=== PATIENT | male | born 1955 | race Caucasian/White ===

== ENCOUNTER 2017-09-24 19:01 | Emergency (ER) | payer SELFPAY ==
--- NOTE | 2017-09-24 19:20 | ER Document Report ---
ED General - General Stated Complaint: UNRESPONSIVE Time Seen by Provider: 09/24/17 19:12 Mode of Arrival: Medic Information source: Emergency Med Personnel Cannot obtain history due to: Altered mental status Notes: This is a 62-year-old man with no known medical history brought into the emergency room by EMS unresponsive. The patient was reportedly brought driving into the [employer] when he pulled to the side of the road. When bystanders went to go check on the patient, he was unresponsive and EMS was called. EMS found the patient unresponsive with a blood pressure of 186/100, Accu-Chek was 78. Patient is unresponsive to voice in the emergency room. He does withdraw to pain. He does intermittently blink his eyes. His oxygen saturation is 99% on 2 L and is maintaining his airway at this time. Twelve-lead EKG by EMS shows normal sinus rhythm with no acute ST-T wave changes - HPI Onset: Just prior to arrival Onset/Duration: Sudden Quality of pain: No pain Severity: None Pain Level: Denies - Related Data Allergies/Adverse Reactions: Unable to Assess Allergy (Unverified 09/25/17 10:43) Past Medical History - General Information source: Emergency Med Personnel Cannot obtain history due to: Altered mental status - Social History Smoking Status: Never Smoker Cigarette use (# per day): No Chew tobacco use (# tins/day): No Frequency of alcohol use: None Drug Abuse: None Lives with: Alone Family History: None Patient has suicidal ideation: No Patient has homicidal ideation: No - Medical History Medical History: Negative Review of Systems - Review of Systems -: Yes ROS unobtainable due to patient's medical condition Physical Exam - Vital signs Vitals: Temp Resp Pulse Ox 99.7 F 19 98 09/24/17 19:04 09/24/17 19:04 09/24/17 19:04 Notes: Physical exam: GENERAL: 62-year-old man, unresponsive to verbal command, does localize to pain , his eyes are closed. Currently his oxygen saturation is 99% on 2 L and is maintaining his airway. Rectal temperature is 99.7. HEAD: Atraumatic, normocephalic. EYES: Pupils equal round and reactive to light, extraocular movements intact, sclera anicteric, conjunctiva are normal. ENT: TMs normal, nares patent, oropharynx clear without exudates. Moist mucous membranes. NECK: Normal range of motion, supple without obvious mass or JVD. LUNGS: Breath sounds clear to auscultation bilaterally and equal. No wheezes rales or rhonchi. HEART: Regular rate and rhythm without murmurs, rubs or gallops. ABDOMEN: Soft, normoactive bowel sounds. No tenderness to palpation. No guarding, no rebound. No masses appreciated. Stool: Brown, sent for study, no masses EXTREMITIES: Normal range of motion, no pitting or edema. No clubbing or cyanosis. NEUROLOGICAL: As noted above, significant alteration in mental status. PSYCH: Unresponsive SKIN: Warm, Dry, normal turgor, no rashes or lesions noted. Course - Re-evaluation Re-evalutation: 09/24/17 23:28 Note: We have no records of this patient. 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 He was in the location of the [facility] when he was driving before this event today happened. I did call the [facility] to see if they had any records of the patient and they did not. The patient has remained nonverbal. For the first several hours, he remained minimally responsive but maintained stable vital signs and a stable airway. He did become agitated with further blood testing and it ripped out his IV at one time requiring restraints. However, he is never returned to a clear sensorium. I did discuss the case with the hospitalist at this hospital who is now willing to accept the patient because of the lack of neurology consultation/EEG. While the patient's symptoms may very well be behavioral in origin, it is very difficult to know for sure at this time. He has not manifested any toxidrome and his tox screen is been negative thus far. I did speak to Dr. Mathis at [facility] who is willing to accept the patient. 09/24/17 23:50 Note: Patient has since started speaking and does admit that he has PTSD and has been on Abilify in the past. He denies any seizure activity. He is quite agitated and states he "had a cardiac arrest". When I have explained to him that he never had a cardiac arrest today, he has become belligerent. In any event, his symptoms at this point tend to be more behavioral than primary neurologic and I will continue to observe him in the emergency room for psych evaluation in the morning. The transfer to [facility] has been canceled in light of the recent events. 09/25/17 02:53 Note: Patient is now resting comfortably with stable vital signs. He was quite agitated as mentioned above and required IV Haldol, IV Ativan for sedation. The patient's spinal tap showed no evidence of infection. CTA of the head and neck showed no evidence of bleed or aneurysm. The plan is to continue to watch the patient until the morning to reassess mental status and to have psychiatry evaluate. 09/25/17 02:55 09/27/17 00:24 Confirmation of psychiatric history from the police department in [place] was obtained. Patient has been ambulating around the emergency room with various complaints at various times. He is refusing his Abilify. The plan is waiting for psychiatric disposition. - Vital Signs Vital signs: Temp Pulse Resp BP Pulse Ox 97.2 F 84 16 144/88 H 100 09/26/17 22:26 09/26/17 22:26 09/26/17 22:26 09/26/17 22:26 09/26/17 22:26 - Laboratory Result Diagrams: 09/24/17 19:00 09/25/17 09:50 Laboratory results interpreted by me: 09/24/17 09/24/17 09/24/17 19:00 19:37 23:10 Sodium Potassium Total Bilirubin 2.0 H Direct Bilirubin 0.5 H AST 207 H ALT 81 H Creatine Kinase 2335 H CK-MB (CK-2) Total Protein Urine Protein 30 H Urine Ketones 80 H Urine Urobilinogen 4.0 H Salicylates < 1.0 L Acetaminophen < 10 L Phenytoin < 3.0 L Carbamazepine < 2.1 L [place] 09/24/17 09/24/17 09/25/17 23:10 23:10 09:50 Sodium 145.5 H Potassium 5.4 H D Total Bilirubin 2.0 H Direct Bilirubin AST 153 H ALT Creatine Kinase 2164 H 1585 H CK-MB (CK-2) Total Protein 6.1 L Urine Protein Urine Ketones Urine Urobilinogen Salicylates Acetaminophen Phenytoin Carbamazepine [place] < 0.2 L 09/25/17 09:50 Sodium Potassium Total Bilirubin Direct Bilirubin AST ALT Creatine Kinase CK-MB (CK-2) 5.11 H Total Protein Urine Protein Urine Ketones Urine Urobilinogen Salicylates Acetaminophen Phenytoin Carbamazepine [place] - Diagnostic Test Radiology reviewed: Image reviewed, Reports reviewed - CT of the head shows no bleed. CTA of the head and neck shows no aneurysm or bleed. - EKG Interpretation by Me Rate: Normal Rhythm: NSR - EKG shows normal sinus rhythm with a ventricular rate of 98, no acute ST-T wave changes Procedures - Lumbar Puncture Lumbar puncture Time completed: 21:00 Consent obtained: No - Patient his altered. No contact numbers. Lumbar puncture pre-procedure: Betadine prep applied, Chloraprep applied, Sterile drapes applied Patient position: Lying Needle size: 20 Lumbar puncture location: Lumbar lower Anesthetic type: 1% Lidocaine mL's of anesthetic: 4 Amount/type of drainage: Mild traumatic at first, cleared nicely Number of attempts: 2 Complications: No Notes: 09/24/17 21:01 No xanthochromia. Opening pressure 15 Critical Care Note - Critical Care Note Total time excluding time spent on procedures (mins): 110 Discharge - Discharge Clinical Impression: Altered mental status, PTSD Condition: Stable
[2017-09-24 19:31] LABS: ABSOLUTE LYMPHOCYTES (AUTO) 1.9 10^3/uL (0.5-4.7); ABSOLUTE MONOCYTES (AUTO) 0.8 10^3/uL (0.1-1.4); ABSOLUTE NEUT (AUTO) 5.2 10^3/uL (1.7-8.2); BASOPHILS % (AUTO) 0.1 % (0-2); HEMATOCRIT 44.7 % (37.9-51.0); HEMOGLOBIN 15.7 g/dL (13.5-17.0); LYMPHOCYTES % (AUTO) 24.4 % (13-45); MEAN CORPUSCULAR HEMOGLOBIN 29.5 pg (27.0-33.4); MEAN CORPUSCULAR HGB CONC 35.1 g/dL (32.0-36.0); MEAN CORPUSCULAR VOLUME 84 fl (80-97); PLATELET COUNT 295 10^3/uL (150-450); RED BLOOD COUNT 5.33 10^6/uL (4.35-5.55); RED CELL DISTRIBUTION WIDTH 13.3 % (11.5-14.0); SEGMENTED NEUTROPHILS % (AUTO) 65.5 % (42-78); TOTAL CELLS COUNTED % (AUTO) 100 %; WHITE BLOOD COUNT 7.9 10^3/uL (4.0-10.5)
[2017-09-24 19:36] LABS: VENOUS BLOOD BASE EXCESS 3.2 mmol/L; VENOUS BLOOD HCO3 29.1 mmol/L (20-32); VENOUS BLOOD PCO2 48.2 mmHg (35-63); VENOUS BLOOD PH 7.4 (7.30-7.42)
--- NOTE | 2017-09-24 19:38 | RADIOLOGY REPORT (SQ) ---
EXAM DESCRIPTION: CT HEAD WITHOUT COMPLETED DATE/TIME: 09/24/2017 7:23 pm REASON FOR STUDY: altered ms COMPARISON: None. TECHNIQUE: Axial images acquired through the brain without intravenous contrast. Images reviewed wi th bone, brain and subdural windows. Images stored on PACS. All CT scanners at this facility use dose modulation, iterative reconstruction, and/or weight based d osing when appropriate to reduce radiation dose to as low as reasonably achievable (ALARA). [facility]: Dose Right [facility]: CareDose [facility]: Dose Right [facility]: Teradose 4D [facility]: G-Snap! RADIATION DOSE: CT Rad equipment meets quality standard of care and radiation dose reduction techniq ues were employed. CTDIvol: 53.2 mGy. DLP: 1017 mGy-cm. mGy. LIMITATIONS: None. FINDINGS: VENTRICLES: Normal size and contour. CEREBRUM: No masses. No hemorrhage. No midline shift. No evidence for acute infarction. Normal gra y/white matter differentiation. No areas of low density in the white matter. CEREBELLUM: No masses. No hemorrhage. No alteration of density. No evidence for acute infarction. EXTRAAXIAL SPACES: No fluid collections. No masses. ORBITS AND GLOBE: No intra- or extraconal masses. Normal contour of globe without masses. CALVARIUM: No fracture. PARANASAL SINUSES: No fluid or mucosal thickening. SOFT TISSUES: No mass or hematoma. OTHER: No other significant finding. IMPRESSION: NORMAL BRAIN CT WITHOUT CONTRAST. EVIDENCE OF ACUTE STROKE: NO. COMMENT: Findings were discussed with Dr. Blackwood at 1932 hours on this date. Quality ID # 436: Final reports with documentation of one or more dose reduction techniques (e.g., Au tomated exposure control, adjustment of the mA and/or kV according to patient size, use of iterative reconstruction technique) TECHNICAL DOCUMENTATION: JOB ID: [id number] [employer]- All Rights Reserved Reading location - IP/workstation name: [email or web address]
--- NOTE | 2017-09-24 19:38 | RADIOLOGY REPORT (SQ) ---
EXAM DESCRIPTION: CHEST SINGLE VIEW COMPLETED DATE/TIME: 09/24/2017 7:26 pm REASON FOR STUDY: altered COMPARISON: None. EXAM PARAMETERS: NUMBER OF VIEWS: One view. TECHNIQUE: Single frontal radiographic view of the chest acquired. RADIATION DOSE: NA LIMITATIONS: None. FINDINGS: LUNGS AND PLEURA: No opacities, masses or pneumothorax. No pleural effusion. MEDIASTINUM AND HILAR STRUCTURES: No masses. Contour normal. HEART AND VASCULAR STRUCTURES: Heart normal in size. Normal vasculature. BONES: No acute findings. HARDWARE: None in the chest. OTHER: No other significant finding. IMPRESSION: NO ACUTE RADIOGRAPHIC FINDING IN THE CHEST. TECHNICAL DOCUMENTATION: JOB ID: [id number] [employer]- All Rights Reserved Reading location - IP/workstation name: [email or web address]
[2017-09-24] MEDS ORDERED: LIDOCAINE 1% INJ-PF (10 MG/ML) 30 ML SDV ONE (19:54)
[2017-09-24 19:57] LABS: ALANINE AMINOTRANSFERASE 81 U/L (21-72); ALBUMIN 4.7 g/dL (3.5-5.0); ALKALINE PHOSPHATASE 71 U/L (38-126); ANION GAP 18 (5-19); ASPARTATE AMINO TRANSFERASE 207 U/L (17-59); BILIRUBIN,DIRECT 0.5 mg/dL (0.0-0.4); BLOOD UREA NITROGEN 19 mg/dL (7-20); CARBON DIOXIDE 25 mmol/L (22-30); CHLORIDE 98 mmol/L (98-107); GLUCOSE 83 mg/dL (75-110); POTASSIUM 4.4 mmol/L (3.6-5.0); SODIUM 140.6 mmol/L (137-145); TOTAL PROTEIN 6.9 g/dL (6.3-8.2)
[2017-09-24 20:01] LABS: APPEARANCE,URINE CLEAR; BILIRUBIN,URINE NEGATIVE (NEGATIVE); GLUCOSE, URINE NEGATIVE (NEGATIVE); KETONES,URINE 80 mg/dL (NEGATIVE); LEUKOCYTE ESTERASE,URINE NEGATIVE (NEGATIVE); NITRITE,URINE NEGATIVE (NEGATIVE); PROTEIN,URINE 30 mg/dL (NEGATIVE)
[2017-09-24 20:08] LABS: CREATINE KINASE MB 4.28 ng/mL (<4.55); TROPONIN I < 0.012 ng/mL
[2017-09-24 20:09] LABS: ACETAMINOPHEN < 10 ug/mL (10-30); ALCOHOL < 10 mg/dL (NONE DETECTED); CREATINE KINASE 2335 U/L (55-170); SALICYLATE < 1.0 mg/dL (2.0-20.0)
[2017-09-24 20:09] LABS: COLOR,URINE YELLOW
[2017-09-24] MEDS ORDERED: LIDOCAINE 1% INJ-PF (10 MG/ML) 30 ML SDV INJ ONE (20:09)
[2017-09-24] MEDS ORDERED: NORMAL SALINE 500 ML IV ONE (20:12)
[2017-09-24 20:18] LABS: URINE AMPHETAMINES SCREEN NEGATIVE; URINE BARBITURATES SCREEN NEGATIVE; URINE BENZODIAZEPINES SCREEN NEGATIVE; URINE COCAINE SCREEN NEGATIVE; URINE MARIJUANA (THC) SCREEN NEGATIVE; URINE METHADONE SCREEN NEGATIVE; URINE PHENCYCLIDINE SCREEN NEGATIVE
[2017-09-24 20:42] LABS: APPEARANCE ALL TUBES CLEAR; COLOR ALL TUBES COLORLESS; CSF TUBE NUMBER 1; RED BLOOD CELL,CSF 38 /uL (0-10)
[2017-09-24 20:43] LABS: APPEARANCE ALL TUBES CLEAR; COLOR ALL TUBES COLORLESS; CSF TUBE NUMBER 4; GLUCOSE,CSF 58 mg/dL (40-70); PROTEIN,CSF 51 mg/dL (12-60); RED BLOOD CELL,CSF 31 /uL (0-10); WHITE BLOOD CELL,CSF 2 /uL (0-5)
[2017-09-24 20:44] LABS: WHITE BLOOD CELL,CSF 1 /uL (0-5)
[2017-09-24] MEDS ORDERED: LORAZEPAM INJ 2 MG/1 ML VIAL IV ONE ×4 (20:56→23:50)
[2017-09-24] MEDS ORDERED: AMMONIA INHALANTS 10 AMPUL/BOX IH ONE (21:53)
--- NOTE | 2017-09-24 22:10 | RADIOLOGY REPORT (SQ) ---
EXAM DESCRIPTION: CTA NECK COMPLETED DATE/TIME: 09/24/2017 9:45 pm REASON FOR STUDY: altered mental status COMPARISON: None. TECHNIQUE: Axial dynamic scanning technique with dynamic contrast enhancement through the extra-sales representative aircraft nial carotid and vertebral arteries. Multiplanar reconstruction. 3-D MIPS and Volume-rendered imag es acquired at the workstation and saved to PACS. Images are reviewed in soft tissue, bone, lung w indows. All CT scanners at this facility use dose modulation, iterative reconstruction, and/or weight based d osing when appropriate to reduce radiation dose to as low as reasonably achievable (ALARA). [facility]: Dose Right [facility]: CareDose [facility]: Dose Right [facility]: Teradose 4D [facility]: Mi[employer]arga CONTRAST TYPE AND DOSE: 68 cc Isovue 370- low osmolar. RENAL FUNCTION: Creatinine 0.95 LIMITATIONS: Suboptimal bolus timing. Carotid and vertebral arteries are poorly opacified. Dental artifact. FINDINGS: AORTIC ARCH: Normal three-vessel origin. Bilateral subclavian arteries are patent. No d issection. RIGHT CAROTIDS: Patent common, internal, and external carotid arteries. No significant stenoses are seen, but evaluation is limited by poor opacification of the vessels. RIGHT VERTEBRAL: Patent. LEFT CAROTIDS: Patent common, internal, and external carotid arteries. No significant stenoses are s een, but evaluation is limited by poor opacification of the vessels LEFT VERTEBRAL: Patent. More prominent than the right. OTHER: No other significant finding. OTHER: 3-D reconstructions confirm findings. IMPRESSION: Grossly normal CTA of the extracranial carotid and vertebral arteries. Study limited by poor opacification of the vessels. COMMENT: Quality ID #[id number]: Measurements of distal internal carotid diameter were used as the denomina tor for stenosis measurement. TECHNICAL DOCUMENTATION: JOB ID: [id number] Quality ID # 436: Final reports with documentation of one or more dose reduction techniques (e.g., Au tomated exposure control, adjustment of the mA and/or kV according to patient size, use of iterative reconstruction technique) 2010 [email or web address]- All Rights Reserved Reading location - IP/workstation name: [email or web address]
--- NOTE | 2017-09-24 22:17 | RADIOLOGY REPORT (SQ) ---
EXAM DESCRIPTION: CTA HEAD COMPLETED DATE/TIME: 09/24/2017 9:45 pm REASON FOR STUDY: altered mental status COMPARISON: None. TECHNIQUE: Post IV contrast scanning, thin section axial imaging through the brain to evaluate the a rterial structures. Source and MIP images are saved and reviewed on PACS. Advanced 3D imaging as volume-rendering, MIPs, SSD performed? yes All CT scanners at this facility use dose modulation, iterative reconstruction, and/or weight based d osing when appropriate to reduce radiation dose to as low as reasonably achievable (ALARA). [facility]: Dose Right [facility]: CareDose [facility]: Dose Right [facility]: Teradose 4D [facility]: Press-sense CONTRAST TYPE AND DOSE: contrast/concentration: Isovue 370.00 mg/ml; Total Contrast Delivered: 68.0 ml; Total Saline Delivered: 55.1 ml RENAL FUNCTION: Creatinine 0.95 LIMITATIONS: Poor bolus timing: Poor opacification of the arteries. FINDINGS: STANDING ROCK OF HEATH: The anterior, middle, posterior cerebral arteries are all patent. No ev idence of aneurysm or focal stenosis. POSTERIOR CIRCULATION: The distal vertebral arteries are patent as is the basilar artery. No aneurysm . BRAIN: No gross enhancing lesions as visualized. The superior cerebral hemispheres are not included in the field of view. BONES: Intact as visualized. SINUSES: No fluid or mucosal thickening. OTHER: No other significant finding. IMPRESSION: No CTA evidence of stenosis or aneurysm of the [place] in this limited study. TECHNICAL DOCUMENTATION: JOB ID: [id number] Quality ID # [id number]: Final reports with documentation of one or more dose reduction techniques (e.g., Au tomated exposure control, adjustment of the mA and/or kV according to patient size, use of iterative reconstruction technique) 2010 [employer]- All Rights Reserved Reading location - IP/workstation name: [email or web address]
[2017-09-24] MEDS ORDERED: LORAZEPAM INJ 2 MG/1 ML VIAL ONE (22:31)
[2017-09-24] MEDS ORDERED: HALOPERIDOL LACTATE INJ 5 MG/1 ML VIAL IM ONE (23:13)
[2017-09-24] MEDS ORDERED: THIAMINE HCL 100 MG in NORMAL SALINE 50 ML IV ONE (23:27)
[2017-09-24 23:48] LABS: CARBAMAZEPINE < 2.1 ug/mL (4.0-12.0); PHENYTOIN < 3.0 ug/mL (10.0-20.0)
[2017-09-25 00:30] LABS: CREATINE KINASE MB 3.94 ng/mL (<4.55)
[2017-09-25] MEDS: NORMAL SALINE 1000 ML 1,000 ML IV PRN ×2 (00:30→11:11)
[2017-09-25 00:31] LABS: TROPONIN I < 0.012 ng/mL
[2017-09-25] MEDS ORDERED: THIAMINE HCL INJ 200 MG/2 ML VIAL ONE (01:01)
--- NOTE | 2017-09-25 07:27 | EKG REPORT ---
SEVERITY:- NORMAL ECG - SINUS RHYTHM : Confirmed by: Bhavesh Campos MD 25-Sep-2017 07:26:29
--- NOTE | 2017-09-25 09:38 | ER Document Report ---
Doctor's Note Notes: 09/25/17 09:37 I attempted to evaluate the patient, he refuses to open his eyes or respond to any questioning, he is verbal when he wishes to be a low suspicion for any medical abnormalities and appears to be behavioral
[2017-09-25 10:26] LABS: ALANINE AMINOTRANSFERASE 60 U/L (21-72); ALBUMIN 3.8 g/dL (3.5-5.0); ALKALINE PHOSPHATASE 51 U/L (38-126); ANION GAP 14 (5-19); ASPARTATE AMINO TRANSFERASE 153 U/L (17-59); BILIRUBIN,DIRECT 0.4 mg/dL (0.0-0.4); BLOOD UREA NITROGEN 20 mg/dL (7-20); CALCIUM 9.5 mg/dL (8.4-10.2); CARBON DIOXIDE 28 mmol/L (22-30); CHLORIDE 104 mmol/L (98-107); CREATINE KINASE 1585 U/L (55-170); GLUCOSE 75 mg/dL (75-110); SODIUM 145.5 mmol/L (137-145); TOTAL PROTEIN 6.1 g/dL (6.3-8.2)
[2017-09-25 10:28] LABS: POTASSIUM 5.4 mmol/L (3.6-5.0)
[2017-09-25] MEDS ORDERED: LORAZEPAM INJ 2 MG/1 ML VIAL IV ONE ×2 (10:53→11:45)
[2017-09-25] MEDS ORDERED: HALOPERIDOL LACTATE INJ 5 MG/1 ML VIAL ONE (11:08)
--- NOTE | 2017-09-25 11:44 | RADIOLOGY REPORT (SQ) ---
EXAM DESCRIPTION: KUB/ABDOMEN (SINGLE VIEW) COMPLETED DATE/TIME: 09/25/2017 11:24 am REASON FOR STUDY: rule out foreign body prior to MRI COMPARISON: AP chest 09/24/2017 NUMBER OF VIEWS: One view. TECHNIQUE: Supine radiographic image of the abdomen acquired. LIMITATIONS: None. FINDINGS: BOWEL GAS PATTERN: Normal bowel gas pattern. No dilated loops. CALCIFICATIONS: No suspicious calcifications. SOFT TISSUES: No gross mass or suggestion of organomegaly. HARDWARE: Clips right upper quadrant post cholecystectomy BONES: No acute fracture. No worrisome bone lesions. OTHER: There is IV contrast from CT angio head and neck in the urinary bladder and nondilated bilater al renal collecting systems. IMPRESSION: NO RADIOGRAPHIC EVIDENCE FOR ACUTE ABDOMINAL DISEASE. TECHNICAL DOCUMENTATION: JOB ID: [id number] [employer]- All Rights Reserved Reading location - IP/workstation name: [email or web address]
[2017-09-25] MEDS ORDERED: DIPHENHYDRAMINE HCL 50 MG/ML VIAL IV ONE (11:45)
[2017-09-25] MEDS ORDERED: HALOPERIDOL LACTATE INJ 5 MG/1 ML VIAL IV ONE (11:45)
--- NOTE | 2017-09-25 12:38 | RADIOLOGY REPORT (SQ) ---
EXAM DESCRIPTION: MRI HEAD COMBO COMPLETED DATE/TIME: 09/25/2017 12:22 pm REASON FOR STUDY: altered COMPARISON: Brain CT scan dated 09/24/2017 TECHNIQUE: Multiplanar imaging includes noncontrasted T1, T2, FLAIR, diffusion with ADC map and post gadolinium contrast T1 sequences. Images stored on PACS. CONTRAST TYPE AND DOSE: 15 mL MultiHance RENAL FUNCTION: GFR > 60. LIMITATIONS: None. FINDINGS: ANATOMY: No anomalies. Normal vascular flow voids. Pituitary fossa normal. CSF SPACES: Normal in size and contour. No hemorrhage. CEREBRUM: Sulci and gyri normal in size and contour. Normal white matter signal on FLAIR imaging. No evidence of hemorrhage, mass, or extraaxial fluid collection. No abnormal enhancement post contrast. POSTERIOR FOSSA: No signal alteration. No hemorrhage. No edema, masses, or mass effect. Internal osvaldo tory canals, cerebellopontine angles, mastoids normal. No enhancing lesions. No abnormal enhancement post contrast. DIFFUSION IMAGING: Negative for acute or subacute infarction. ORBITS: No masses. Globes normal. PARANASAL SINUSES: No fluid levels. Mucosa normal. OTHER: No other significant finding. IMPRESSION: NORMAL MRI OF THE BRAIN WITHOUT AND WITH INTRAVENOUS GADOLINIUM CONTRAST. EVIDENCE OF ACUTE STROKE: NO. TECHNICAL DOCUMENTATION: JOB ID: [id number] [employer]- All Rights Reserved Reading location - IP/workstation name: [email or web address]
--- NOTE | 2017-09-25 16:40 | PSYCHOLOGICAL NOTE ---
Psych Note - Psych Note Psych Note: Reason for Consult: psychosis This is a 62-year-old man with no known medical history brought into the emergency room by EMS unresponsive. [place] he [place] to the side of the road. When bystanders went to go check on the patient, he was unresponsive and EMS was called. Patient would not awaken for evaluation. Later when radiology was in patient's room he was observed yelling and attempting to get away from staff screaming "call my command....PTSD..." Patient was highly agitated and required physical and pharmaceutical restraint. 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 Collateral obtained by behavioral health team (contact obtained by [facility]) Spoke with patients brother Jostin Gil ([phone]) who reports that his brother was diagnosed with Paranoid Schizophrenia at the age of 17/18 and received ECT back in the 70's. Per Jostin, the patient functions very well when he is on his medications. He reports that is brother is not a violent person, but has periods when he just stops taking his medication, throws away his identification and take off on trips. 8-10 years ago took a trip to [place] and late 2016 ended up in [place] where is ex had to go him. The patient will sometimes refer to himself as "Chao" and likes to think of himself as a super hero. Jostin reports that he speaks to his bother every 2-3 weeks, last time being 2 weeks ago and last saw him about a month ago. Per Jostin, he has been trying to contact the patient since Saturday to inform him their sister this past saturday night, but has been unable to reach him (unsure if patient is aware of sisters at this point). Jostin provided this conventional mortgage underwriter with the patients ex wifes number, Jane ([phone]), she is still involved with caring for the patient and would be able to provide more information. This conventional mortgage underwriter called and left a message requesting ex to contact [facility]. [phone] ([phone]) schizophrenia per history provided by patient's brother Impression\\plan: Patient is recommended for IVC. Patient is currently in acute psychosis which impairs his cognitive functioning i.e. his insight, judgment, impulse control, attention and concentration are poor. 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 Patient has no history of services; however, his delusions frequently are thinking of himself as a super hero. Patient's family has had a recent in the family with historically has been difficult for the patient to handle.
[2017-09-25] MEDS ORDERED: HALOPERIDOL LACTATE INJ 5 MG/1 ML VIAL IV PRN (22:05)
--- NOTE | 2017-09-26 10:26 | ER Document Report ---
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 Patient has been examined and noted to be resting comfortably however this morning he believes he is blind, he no longer believes he is having a heart attack, however patient believes that he is blind this morning,. I am awaiting mental health in [place].
[2017-09-26] MEDS ORDERED: OLANZAPINE 5 MG TABLET PO SCH (12:15)
[2017-09-26] MEDS ORDERED: BENZTROPINE MESYLATE 1 MG TABLET PO SCH (12:15)
[2017-09-26] MEDS ORDERED: BENZTROPINE MESYLATE 1 MG TABLET PO ONE (12:30)
[2017-09-26] MEDS ORDERED: OLANZAPINE 5 MG TABLET PO ONE (12:30)
[2017-09-26] MEDS ORDERED: OLANZAPINE INJ/PF 10 MG SDV IM ONE (12:44)
[2017-09-26] MEDS ORDERED: BENZTROPINE MESYLATE INJ 2 MG/2 ML AMPULE IM ONE (13:04)
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
[2017-09-26] MEDS: ARIPIPRAZOLE 5 MG TABLET PO SCH (22:09)
[2017-09-27] MEDS: OLANZAPINE INJ/PF 10 MG SDV IM SCH (07:59)
[2017-09-27] MEDS ORDERED: OLANZAPINE INJ/PF 10 MG SDV IM PRN (09:35)
[2017-09-27] MEDS: BENZTROPINE MESYLATE INJ 2 MG/2 ML AMPULE IM SCH (09:39)
[2017-09-27] MEDS: CHLORPROMAZINE HCL INJ 25 MG/1 ML AMPULE IM SCH ×2 (10:38→22:45)
[2017-09-27 11:03] LABS: ABSOLUTE LYMPHOCYTES (AUTO) 1.8 10^3/uL (0.5-4.7); ABSOLUTE MONOCYTES (AUTO) 0.5 10^3/uL (0.1-1.4); ABSOLUTE NEUT (AUTO) 2.9 10^3/uL (1.7-8.2); BASOPHILS % (AUTO) 0.1 % (0-2); HEMATOCRIT 39.9 % (37.9-51.0); HEMOGLOBIN 13.9 g/dL (13.5-17.0); LYMPHOCYTES % (AUTO) 34.3 % (13-45); MEAN CORPUSCULAR HEMOGLOBIN 29.2 pg (27.0-33.4); MEAN CORPUSCULAR HGB CONC 34.7 g/dL (32.0-36.0); MEAN CORPUSCULAR VOLUME 84 fl (80-97); MONOCYTES % (AUTO) 9.3 % (3-13); PLATELET COUNT 243 10^3/uL (150-450); RED BLOOD COUNT 4.76 10^6/uL (4.35-5.55); RED CELL DISTRIBUTION WIDTH 13.5 % (11.5-14.0); SEGMENTED NEUTROPHILS % (AUTO) 56.3 % (42-78); TOTAL CELLS COUNTED % (AUTO) 100 %; WHITE BLOOD COUNT 5.2 10^3/uL (4.0-10.5)
[2017-09-27 11:24] LABS: ALANINE AMINOTRANSFERASE 62 U/L (21-72); ALKALINE PHOSPHATASE 53 U/L (38-126); ANION GAP 9 (5-19); ASPARTATE AMINO TRANSFERASE 101 U/L (17-59); BILIRUBIN,DIRECT 0.3 mg/dL (0.0-0.4); BILIRUBIN,TOTAL 1.1 mg/dL (0.2-1.3); BLOOD UREA NITROGEN 15 mg/dL (7-20); CALCIUM 9.9 mg/dL (8.4-10.2); CARBON DIOXIDE 33 mmol/L (22-30); CHLORIDE 103 mmol/L (98-107); CREATINE KINASE 937 U/L (55-170); GLUCOSE 82 mg/dL (75-110); POTASSIUM 4.1 mmol/L (3.6-5.0); SODIUM 145.2 mmol/L (137-145); TOTAL PROTEIN 5.9 g/dL (6.3-8.2)
--- NOTE | 2017-09-27 19:20 | ER Document Report ---
Doctor's Note Notes: 09/27/17 19:19 Patient was seen and evaluated. Repeat labs ordered. CK improved. Potassium normal. At this time will continue with his treatment. 09/27/17 19:19
[2017-09-27] MEDS: ARIPIPRAZOLE 5 MG TABLET PO SCH (22:44)
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
[2017-09-28] MEDS: CHLORPROMAZINE HCL INJ 25 MG/1 ML AMPULE IM SCH (10:22)
[2017-09-28] MEDS: OLANZAPINE INJ/PF 10 MG SDV IM SCH (10:22)
[2017-09-28] MEDS: BENZTROPINE MESYLATE INJ 2 MG/2 ML AMPULE IM SCH (10:22)
--- NOTE | 2017-09-28 15:16 | PSYCHOLOGICAL NOTE ---
Psych Note - Psych Note Psych Note: Reason for Consult: psychosis This is a 62-year-old man with no known medical history brought into the emergency room by EMS unresponsive. The [place] he [place] to the side of the road. When bystanders went to go check on the patient, he was unresponsive and EMS was called Clinician conducted check in with patient. Patient is observed with his eyes still partly closed and reporting he is blind. Patient asked clinician how to change singh and then stated; "this room is not safe." He was unable to explain why he felt he was unsafe. Patient jumped to a new topic and stated; "treat me with respect as I would treat you I am an honorable man." Medication recommendations per [facility]'s contracted psychiatrist Dr. Juan MORRELL are as follows Continue Home medications 1. Abilify 10mg nightly 2. Zyprexa 10mg in the morning 3. Cogentin 1 mg daily for prevention of any possible side effects from the antipsychotic medications 4. Please add Zyprexa 5mg every 12 hours as needed for agitation 5. Please add Thorazine 50 mg every 12 hours for mood stabilization and psychosis 295.90 (F20.9) schizophrenia per history provided by patient's only 309.81 (F43.10) post traumatic stress per history provided by patient and patient family Impression\\plan: Patient is recommended for IVC. Patient is currently in acute psychosis which impairs his cognitive functioning i.e. his insight, judgment, impulse control, attention and concentration are poor. Patient verbalizes having history of only PTSD; however, patient's family indicates patient was diagnosed with paranoid schizophrenia at the age of 16 or 17 and received ECT treatment in the 1970s. Patient also has PTSD from multiple events occurring to him while inpatient over the years and a near experience he had while off his medications. Per patient's family, the patient's delusions frequently are thinking of himself as a super hero. Today patient is again observed walking around with his eyes mainly closed but can still see interactions around him, ie correctly identifying security when they walk by and walking around his room without walking into things. Patient's family has had a recent in the family with historically has been difficult for the patient to handle. Dr. Rodriguez was consulted on the care and management of this patient; attending physiian is in agreement with recommendations and disposition.
--- NOTE | 2017-09-28 15:21 | PSYCHOLOGICAL NOTE ---
Psych Note - Psych Note Psych Note: Reason for Consult: psychosis This is a 62-year-old man with no known medical history brought into the emergency room by EMS unresponsive. The [place] he [place] to the side of the road. When bystanders went to go check on the patient, he was unresponsive and EMS was called Clinician observed patient to be sleeping all day. Patient noted to ask [facility] staff what the date was and where is was. When he was told he was in [place], he was able to correctly identify her was in [place]. Patient then promptly fell asleep. Medication recommendations per [facility]'s contracted psychiatrist Dr. Juan MORRELL are as follows 1. Please D/C Abilify 2. Please D/C Zyprexa 3. Please D/C Zyprexa 4. Please D/C Thorazine 5. Prolixin 5 mg twice daily for psychosis 6. Please keep Cogentin 1my daily for prevention of possible side effects of Prolixin 295.90 (F20.9) schizophrenia per history provided by patient's only 309.81 (F43.10) post traumatic stress per history provided by patient and patient family Impression\plan: Patient is recommended for IVC. Patient is currently in acute psychosis which impairs his cognitive functioning i.e. his insight, judgment, impulse control, attention and concentration are poor. Patient verbalizes having history of only PTSD; however, patient's family indicates patient was diagnosed with paranoid schizophrenia at the age of 16 or 17 and received ECT treatment in the 1970s. Patient also has PTSD from multiple events occurring to him while inpatient over the years and a near experience he had while off his medications. Per patient's family, the patient's delusions frequently are thinking of himself as a super hero. Today patient is again observed walking around with his eyes mainly closed but can still see interactions around him, ie correctly identifying security when they walk by and walking around his room without walking into things. Patient's family has had a recent in the family with historically has been difficult for the patient to handle. Dr. Rodriguez was consulted on the care and management of this patient; attending physiian is in agreement with recommendations and disposition.
[2017-09-28] MEDS ORDERED: FLUPHENAZINE DECANOATE INJ 125 MG/5 ML VIAL IM SCH (18:00)
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
--- NOTE | 2017-09-30 06:55 | EKG REPORT ---
SEVERITY:- ABNORMAL ECG - SINUS RHYTHM PAIRED VENTRICULAR PREMATURE COMPLEXES BORDERLINE T ABNORMALITIES, ANTERIOR LEADS : Confirmed by: Kuldip Chilel 30-Sep-2017 06:53:49
[2017-09-30 08:54] VITALS: BP 112/68
--- NOTE | 2017-09-30 09:23 | ER Document Report ---
Doctor's Note Notes: 09/30/17 09:23 As the rounding physician for our psychiatric patients, I have reviewed the chart, vitals, lab work. Patient has been examined and noted to be alert oriented , he is aware of his surroundings, is able ot clearly express himself . I am awaiting mental health in [place]. 09/30/17 09:43
== END 2017-09-30 10:25 | disposition home or self-care (01) ==
LOC: ER 19:01
PROC: 009U3ZX Drainage of Spinal Canal, Percutaneous Approach, Diagnostic (ICD-10-PCS; principal; 2017-09-24)
DX: R41.82 Altered mental status, unspecified (principal); F43.10 Post-traumatic stress disorder, unspecified; F20.9 Schizophrenia, unspecified
CPT/HCPCS: 62270; 93005 ×2; 96376; 99291; 99292; 96372; 96361; 51702; 96374; 36415; 87040; 87070; 87205; 82553; 82962; 80307 ×4; 82550; 80178; 84443; 80156; 80185; 85025; 89050; 82945; 84157; 82272; 87077; 80053; 81001; 84484; 87186; 82803; 83605; 70553; 71045; 74018; 70450; 70496; 70498; 93010 ×2; A9577; J0515 ×3; J3230 ×2; J1630 ×2; J2060 ×2; J3411; J7030; J7040